=== PATIENT | female | born 1985 | race Caucasian/White ===

== ENCOUNTER 2016-07-07 23:14 | Emergency (ER) | payer OTHER ==
[~2016-07-07] VITALS: Ht 165.1 cm; Wt 105.7 kg
[~2016-07-07 23:14] MED LIST: AMOX500C3 PO; MEGE40TA13 PO; VNTHFA/IN INH
[2016-07-07 23:23] VITALS: BP 172/128; PULSE 132; TEMP 37; O2SAT 99; Ht 165.1 cm; Wt 105.7 kg
--- NOTE | 2016-07-07 23:37 | EMERGENCY ROOM VISIT NOTE ---
ED Visit Note First contact with patient: 23:26 CHIEF COMPLAINT: Right thumb laceration HISTORY OF PRESENT ILLNESS: This 31-year-old female patient presents to the emergency department ambulatory after cutting the right thumb on a knife while cutting chicken. The bleeding stopped shortly after the injury and there is no weakness or numbness of the area. Tetanus shot is up-to-date. Full range of motion of the thumb. The patient denies any pain. REVIEW OF SYSTEMS: A 6 system review of systems was completed with positives and pertinent negatives listed in the HPI. ALLERGIES: Bupropion, pseudoephedrine MEDICATIONS: Reviewed med list PMH: No significant past medical history. SOCIAL HISTORY: The patient lives locally with family. She is a smoker. She denies alcohol use. PHYSICAL EXAM: Vital Signs: Reviewed Nurse's notes, vital signs stable. GENERAL : This is a 31-year-old female, in no acute distress, well-developed, well- nourished. SKIN: There is a 1 cm long laceration to the tip of the right thumb. It is superficial and the edges only mildly gape apart with traction, but lay well without traction. There is no foreign material in the wound and it looks clean. There is no active bleeding. No deep structures such as tendons or nerves are seen in the base of the wound. Extension and flexion of the right thumb is full and strong. Sensation to pain and light touch is intact. EMERGENCY DEPARTMENT COURSE: I examined the patient. Verbal consent was obtained to perform the procedure. The laceration was cleaned with betadine and sterile saline and there was no bleeding. The edges of the laceration were approximated and secured with 3 layers of Dermabond glue with good wound approximation. The patient tolerated the procedure well. The patient was discharged home in stable condition. DIAGNOSIS: Right thumb laceration Current/Historical Medications Scheduled Albuterol Hfa (Ventolin Hfa), 2 PUFF INH PRN Amoxicillin (Amoxil), 500 MG PO TID Megestrol Acetate (Megace), 80 MG PO QID Allergies Coded Allergies: Bupropion (Unverified Allergy, Unknown, 12/06/11) Pseudoephedrine (Unverified Allergy, Unknown, 12/06/11) Vital Signs Date Time Temp Pulse Resp B/P Pulse Ox O2 Delivery O2 Flow Rate FiO2 07/07/16 23:23 37.0 132 20 172/128 99 Room Air Departure Information Impression Primary Impression: Laceration of finger Dispostion Home / Self-Care Condition GOOD Referrals El Salazar M.D. (PCP) Patient Instructions [facility] Additional Instructions No ointments or lotions on the skin glue. The glue will fall off on its own within 2-3 days. Follow-up with your primary care provider as needed. Problem Qualifiers Primary Impression: Laceration of finger Encounter type: initial encounter Qualified Codes: S61.219A - Laceration without foreign body of unspecified finger without damage to nail, initial encounter
== END 2016-07-07 23:46 | disposition home or self-care (01) ==
LOC: C.EDB 23:15 → C.EDC 23:46
DX: S61.011A Laceration without foreign body of right thumb without damage to nail, initial encounter (principal); W26.0XXA Contact with knife, initial encounter; F17.200 Nicotine dependence, unspecified, uncomplicated; Z88.8 Allergy status to other drugs, medicaments and biological substances

== ENCOUNTER 2017-04-08 13:29 | Emergency (ER) | payer OTHER ==
[~2017-04-08] VITALS: Ht 165.1 cm; Wt 101.1 kg
[2017-04-08 13:41] VITALS: TEMP 37.4; Ht 165.1 cm; Wt 101.1 kg
[2017-04-08] MEDS ORDERED: IBUPROFEN 200 MG TAB PO STA (14:01)
[2017-04-08] MEDS ORDERED: ACETAMINOPHEN 500 MG TAB PO STA (14:01)
--- NOTE | 2017-04-08 14:05 | EMERGENCY ROOM VISIT NOTE ---
History First contact with patient: 13:50 Chief Complaint: FOOT PAIN Stated Complaint: FOOT PAIN, RIGHT History of Present Illness The patient is a 31 year old female who presents to the Emergency Room with complaints of right foot pain after sustaining a fall prior to arrival. The patient slipped. She thinks that her right foot went underneath her. She denies any other injuries. The pain is worse with weightbearing. She is not taking anything for pain. Review of Systems 6 system review negative. Please see pertinent positives in the history of present illness section. Past Medical/Surgical History Otherwise healthy Social History Smoking Status: Current Every Day Smoker Alcohol Use: none Marital Status: Physical Exam Vital Signs Date Time Temp Pulse Resp B/P (MAP) Pulse Ox O2 Delivery O2 Flow Rate FiO2 04/08/17 14:56 100 20 159/117 97 04/08/17 14:14 166/115 04/08/17 13:41 37.4 112 16 197/115 98 Room Air Physical Exam VITALS: Vitals are noted on the nurse's note and reviewed by myself. Vital signs stable. GENERAL: 31-year-old female, in no acute distress, nondiaphoretic, well- developed well-nourished. SKIN: The skin was intact HEAD: Normocephalic atraumatic. MUSCULOSKELETAL: RIGHT FOOT: Tenderness to palpation noted over the first and second MTP joints. Pain with dorsiflexion. No tenderness over the fifth metatarsal. No tenderness over the ankle. Capillary refill in the toes is less than 2 seconds. DP pulse +2. NEURO: Patient was alert and oriented to person place and time. Normal sensation to touch. No focal neurological deficits. Medical Decision & Procedures ER Provider Diagnostic Interpretation: Foot x-ray IMPRESSION: No acute fracture. The above report was generated using voice recognition software. It may contain grammatical, syntax or spelling errors. Electronically signed by: Galo Singh M.D. 04/08/2017 2:24 PM Medications Administered Medications (Trade) Dose Ordered Sig/Baldo Route Start Time Stop Time Status Last Admin Dose Admin Ibuprofen (Advil Tab) 800 mg NOW STAT PO 04/08/17 14:01 04/08/17 14:02 DC 04/08/17 14:10 800 MG Acetaminophen (Tylenol Tab) 1,000 mg NOW STAT PO 04/08/17 14:01 04/08/17 14:02 DC 04/08/17 14:10 1,000 MG ED Course The patient was seen and examined She was medicated with Motrin and Tylenol Imaging was performed and reviewed Upon reevaluation, the pain was improved. We discussed the results of her x- rays. She voiced understanding. The patient was put in a postop shoe. She was instructed on the use of crutches. Discharge instructions were reviewed, and she was discharged in good condition Medical Decision Differential diagnosis: Contusion, sprain, fracture This patient is a 31-year-old female that presents to the emergency department with complaints of right foot pain after a fall. On exam, she was tender over the first and second MTP joints. Per exam, this was likely a strain of the extensor tendons. X-rays did not reveal any fractures. The patient was given a postop shoe and instructed on the use of crutches. She will ice the foot and take ibuprofen for pain. She will follow-up with her primary care physician if there is no improvement within the next 7 days. She agrees to return to emergency department with worsening symptoms. This chart was completed in part utilizing [employer] Speech Voice Recognition software. Attempts were made to minimize the grammatical errors, random word insertions, pronoun errors and incomplete sentences. Any formal questions or concerns about the content, text or information contained within the body of this dictation should be directly addressed to the provider for clarification. Medication Reconcilliation Current Medication List: was personally reviewed by me Blood Pressure Screening Patient's blood pressure: Elevated blood pressure Blood pressure disposition: Referred to PCP Impression Primary Impression: Right foot strain Departure Information Dispostion Home / Self-Care Condition GOOD Referrals El Salazar M.D. (PCP) Calvin Rodriguez D.O. Patient Instructions ED Sprain Foot, My [facility] Additional Instructions You have been evaluated in the emergency department for pain in the right foot. This is likely due to a sprain. Please use the postop shoe for support. Use crutches while getting around. No weightbearing while the foot is still painful. Please apply ice for 20 minute intervals over the next 48 hours Please take ibuprofen 600 mg every 6 hours as needed for pain Of note, your blood pressure was also elevated in the emergency department. This should be rechecked. Please follow-up with your primary care physician or an orthopedic doctor if there is no improvement in 7 days. Please do not hesitate to return to the emergency department with any new or worsening symptoms. Work Instructions Return To Work: 2 days
--- NOTE | 2017-04-08 14:25 | DIAGNOSTIC IMAGING REPORT ---
R FOOT MIN 3 VIEWS ROUTINE HISTORY: 31 years-old Female Pain over 1 and 2 MTP joint acute right foot pain, most pronounced within the first and second metatarsal phalangeal joints COMPARISON: Right ankle radiographs 09/04/2009 TECHNIQUE: 3 views of the right foot FINDINGS: Type I accessory navicular. There is no acute fracture, dislocation or significant degenerative changes. No stress fracture. Note is made of an os trigonum. Soft tissues are unremarkable without opaque foreign body. IMPRESSION: No acute fracture. The above report was generated using voice recognition software. It may contain grammatical, syntax or spelling errors. Electronically signed by: Galo Singh M.D. 04/08/2017 2:24 PM Dictated Date/Time: 04/08/2017 2:22 PM
[2017-04-08 14:56] VITALS: BP 159/117; PULSE 100; O2SAT 97
== END 2017-04-08 14:58 | disposition home or self-care (01) ==
LOC: C.EDB 13:30 → C.EDD 14:58
DX: S96.211A Strain of intrinsic muscle and tendon at ankle and foot level, right foot, initial encounter (principal); W01.0XXA Fall on same level from slipping, tripping and stumbling without subsequent striking against object, initial encounter; F17.200 Nicotine dependence, unspecified, uncomplicated